=== PATIENT | male | born 1940 | race Caucasian/White ===

== ENCOUNTER 2019-08-31 16:46 | Inpatient (IN) ==
[2019-08-31] MEDS ORDERED: Ipratropium/Albuterol Neb 3 ML IH PRN (16:59)
[2019-08-31] MEDS ORDERED: *HR* HYDROcodone/Acet 5/325 mg TABLET PO PRN (17:13)
[2019-08-31] MEDS ORDERED: *HR* LORazepam 0.5 MG TABLET PO PRN (17:55)
[2019-08-31] MEDS ORDERED: Acetaminophen 650 MG RECTAL SUPP RC PRN (17:58)
[2019-08-31] MEDS ORDERED: Hyoscyamine SL 0.125 MG TAB.SUBL SL PRN (17:59)
[2019-08-31] MEDS: Morphine Sulfate ER (12 HR) 15 MG TABLET.ER PO SCH (18:52)
[2019-08-31] MEDS: *HR* LORazepam 1 MG TABLET PO PRN (22:21)
[2019-09-01] MEDS: Triamcinolone Acet 0.1% CRM 15 GM TUBE TP SCH ×3 (00:22→20:44)
[2019-09-01] MEDS: Morphine Sulfate ER (12 HR) 15 MG TABLET.ER PO SCH ×2 (05:51→17:33)
[2019-09-01] MEDS: predniSONE 10 MG TABLET PO SCH (10:20)
[2019-09-01] MEDS: Nicotine 14 MG PATCH.TD24 TD SCH (10:20)
[2019-09-01] MEDS: Metoprolol XL (24 HR) Succ 25 MG TAB.ER.24H PO SCH (10:20)
[2019-09-01] MEDS ORDERED: Melatonin 3 MG TABLET PO PRN (21:00)
[2019-09-02] MEDS: Morphine Sulfate ER (12 HR) 15 MG TABLET.ER PO SCH (05:12)
[2019-09-02 06:35] VITALS: BP 114/61
[2019-09-02] MEDS: Metoprolol XL (24 HR) Succ 25 MG TAB.ER.24H PO SCH (09:02)
[2019-09-02] MEDS: Nicotine 14 MG PATCH.TD24 TD SCH (09:02)
[2019-09-02] MEDS: predniSONE 10 MG TABLET PO SCH (09:02)
[2019-09-02] MEDS: Triamcinolone Acet 0.1% CRM 15 GM TUBE TP SCH (09:07)
[2019-09-02] MEDS: *HR* LORazepam 1 MG TABLET PO PRN (09:09)
== END 2019-09-02 15:25 | disposition hospice, home (50) | DRG 181 ==
LOC: INPPIK 17:46
PROVIDERS: ADMIT Family Medicine; ATTEND Family Medicine